=== PATIENT | female | born 1960 | race Caucasian/White ===

== ENCOUNTER 2019-06-23 12:56 | Emergency (ER) | payer OTHER ==
[2019-06-23] MEDS ORDERED: GABA-529 PO (13:18)
[2019-06-23 13:35] VITALS: BP 128/72
[2019-06-23] MEDS ORDERED: ACETAMINOPHEN 325 MG TABLET PO PRN ×2 (13:45)
[2019-06-23] MEDS ORDERED: BISACODYL 10 MG RECTAL RECTAL SUPPOSITORY PR PRN (13:45)
[2019-06-23] MEDS ORDERED: DOCUSATE SODIUM 100 MG CAPSULE PO PRN (13:45)
[2019-06-23] MEDS ORDERED: IPRATROPIUM BROMIDE 0.5 MG/2.5 ML NEB SOLUTION NEB PRN (13:45)
[2019-06-23] MEDS ORDERED: PANTOPRAZOLE SODIUM 40 MG DR TABLET PO SCH (13:45)
[2019-06-23] MEDS ORDERED: ONDANSETRON HCL 4 MG/2 ML VIAL IVP PRN (13:45)
[2019-06-23] MEDS ORDERED: MAGNESIUM HYDROXIDE SUSPENSION 30 ML UDCUP PO PRN (13:45)
[2019-06-23] MEDS ORDERED: ALBUTEROL SULFATE 2.5 MG/0.5 ML NEB SOLUTION NEB PRN (13:45)
[2019-06-23] MEDS ORDERED: 0.9% SODIUM CHLORIDE 10 ML SYRINGE IVP PRN (13:45)
== END 2019-06-23 14:09 | disposition home or self-care (01) ==
LOC: EMS 12:58
DX: T42.4X1A Poisoning by benzodiazepines, accidental (unintentional), initial encounter (principal); F41.9 Anxiety disorder, unspecified; Z79.899 Other long term (current) drug therapy; Y92.89 Other specified places as the place of occurrence of the external cause